=== PATIENT | female | born 1965 | race Caucasian/White ===

== ENCOUNTER → 2016-11-05 | Outpatient (CLI) | payer OTHER | END | disposition home or self-care (01) | LOC: C.LABMFLN 09:22 | PROVIDERS: ATTEND Family Medicine | DX: R10.9 Unspecified abdominal pain (principal) ==

== ENCOUNTER → 2017-04-27 | Outpatient (CLI) | payer OTHER | END | disposition home or self-care (01) | LOC: C.LABMFLN 16:25 | PROVIDERS: ATTEND Family Medicine | DX: J02.9 Acute pharyngitis, unspecified (principal) ==

== ENCOUNTER → 2017-05-25 | Outpatient (CLI) | payer OTHER ==
[2017-05-25 14:03] LABS: BASO % 0.2 %; BASO ABS # 0.01 K/uL (0-0.2); COMPLETE YES; EOS % 1.3 %; HEMATOCRIT 38.8 % (37-47); IG% 0.2 %; LYMPH % 27.2 %; LYMPH ABS # 1.41 K/uL (1.2-3.4); MEAN CELL VOLUME 95.6 fL (80-100); MEAN CORPUSCULAR HEMOGLOBIN 31.3 pg (25-34); MEAN CORPUSCULAR HGB CONC 32.7 g/dl (32-36); MONO % 8.5 %; NEUT % 62.6 %; PLATELET COUNT 158 K/uL (130-400); RED BLOOD COUNT 4.06 M/uL (4.2-5.4); WHITE BLOOD COUNT 5.19 K/uL (4.8-10.8)
[2017-05-25 14:22] LABS: ALT/SGPT 20 U/L (12-78); AST/SGOT 13 U/L (15-37); BLOOD UREA NITROGEN 19 mg/dl (7-18); BUN/CREATININE RATIO 26.5 (10-20); CALCIUM 8.9 mg/dl (8.5-10.1); CARBON DIOXIDE 29 mmol/L (21-32); CHLORIDE 106 mmol/L (98-107); CREATININE 0.72 mg/dl (0.60-1.20); GLUCOSE 80 mg/dl (70-99); SODIUM 140 mmol/L (136-145)
[2017-05-25 14:23] LABS: CHOLESTEROL/HDL RATIO 2.3; THYROID STIMULATING HORMONE 0.02 uIu/ml (0.300-4.500)
[2017-05-25 14:24] LABS: ALB/GLOB RATIO 1.1 (0.9-2); ALKALINE PHOSPHATASE 33 U/L (45-117)
== END | disposition home or self-care (01) ==
LOC: C.LABMFLN 11:55
PROVIDERS: ATTEND Internal Medicine Rheumatology
DX: Z51.81 Encounter for therapeutic drug level monitoring (principal); Z79.899 Other long term (current) drug therapy; E78.5 Hyperlipidemia, unspecified; E03.9 Hypothyroidism, unspecified

== ENCOUNTER → 2017-06-25 | Outpatient (CLI) | payer OTHER ==
[2017-06-25 18:11] LABS: THYROID STIMULATING HORMONE 0.048 uIu/ml (0.300-4.500)
== END | disposition home or self-care (01) ==
LOC: C.LABMFLN 12:46
PROVIDERS: ATTEND Family Medicine
DX: E03.9 Hypothyroidism, unspecified (principal)

== ENCOUNTER → 2018-05-24 | Outpatient (CLI) | payer BC ==
[2018-05-24 18:13] LABS: BASO % 0.1 %; BASO ABS # 0.01 K/uL (0-0.2); EOS % 0.5 %; EOS ABS # 0.04 K/uL (0-0.5); HEMATOCRIT 37.8 % (37-47); HEMOGLOBIN 12.8 g/dL (12.0-16.0); IG# 0.03 K/uL (0.00-0.02); LYMPH % 18.3 %; MEAN CELL VOLUME 95.2 fL (80-100); MEAN CORPUSCULAR HEMOGLOBIN 32.2 pg (25-34); MEAN CORPUSCULAR HGB CONC 33.9 g/dl (32-36); MEAN PLATELET VOLUME 9.3 fL (7.4-10.4); MONO % 6.5 %; MONO ABS # 0.53 K/uL (0.11-0.59); NEUT % 74.2 %; NEUT ABS # 6.09 K/uL (1.4-6.5); PLATELET COUNT 229 K/uL (130-400); RED CELL DISTRIBUTION WIDTH CV 12.5 % (11.5-14.5); RED CELL DISTRIBUTION WIDTH SD 42.8 fL (36.4-46.3)
[2018-05-24 18:59] LABS: ALBUMIN 3.5 gm/dl (3.4-5.0); ALKALINE PHOSPHATASE 40 U/L (45-117); ALT/SGPT 21 U/L (12-78); AST/SGOT 24 U/L (15-37); BLOOD UREA NITROGEN 19 mg/dl (7-18); CALCIUM 8.6 mg/dl (8.5-10.1); CARBON DIOXIDE 26 mmol/L (21-32); CHOLESTEROL 235 mg/dl (0-200); CREATININE 0.98 mg/dl (0.60-1.20); GLUCOSE 86 mg/dl (70-99); LDL CHOLESTEROL CALCULATED 127 mg/dl; POTASSIUM 3.6 mmol/L (3.5-5.1); SODIUM 135 mmol/L (136-145); TOTAL PROTEIN 7.1 gm/dl (6.4-8.2)
== END | disposition home or self-care (01) ==
LOC: C.LABMFLN 13:23
PROVIDERS: ATTEND Family Medicine
DX: M06.9 Rheumatoid arthritis, unspecified (principal); E78.5 Hyperlipidemia, unspecified; E03.9 Hypothyroidism, unspecified

== ENCOUNTER 2020-11-19 08:42 | Inpatient (IN) ==
--- NOTE | 2020-10-17 11:21 | PAT Medication Instructions ---
Medication Instructions Date of Service October 17, 2020 Home Medications ferrous gluconate 256 mg (28 mg iron) tablet 256 mg PO QAM calcium carbonate-vitamin D3 1 cap PO QAM cholecalciferol (vitamin D3) 1,000 units PO QAM estradiol 1 mg PO QAM flurbiprofen 100 mg PO BID levothyroxine 75 mcg PO QAM modafinil 100 mg PO DAILY PRN prednisone 2 mg PO QAM tofacitinib 11 mg PO QAM ASK your surgeon for instructions flurbiprofen 100 mg PO BID ASK your prescriber and surgeon tofacitinib 11 mg PO QAM DO NOT take the morning of surgery ferrous gluconate 256 mg (28 mg iron) tablet 256 mg PO QAM calcium carbonate-vitamin D3 1 cap PO QAM cholecalciferol (vitamin D3) 1,000 units PO QAM modafinil 100 mg PO DAILY PRN Take morning of surgery With a small sip of water, OTHERWISE NOTHING TO EAT OR DRINK AFTER MIDNIGHT: levothyroxine 75 mcg PO QAM prednisone 2 mg PO QAM estradiol 1 mg PO QAM (continue as normal unless told otherwise by surgeon) Other Notes If you have any questions please call us at [phone] or [phone] or [phone] or [phone]
--- NOTE | 2020-10-18 13:35 | Anesthesiology Consultation ---
Date of Service October 18, 2020 Assessment & Plan (1) Encounter for pre-operative examination: COVID Status: As of 10/18 assessment, patient denies travel to endemic area, known exposure/sick contacts, or symptoms of COVID19. Patient instructed that they and their household members must follow strict social distancing guidelines, wear a mask in public and avoid travel/events/gatherings for 14 days prior to surgery. Preoperative COVID19 testing to be completed prior to surgery per surgeon's arrangements (11/12). Patient made aware to self-isolate as much as possible between COVID testing and surgery. Chart Review Chart Review: Acceptable Risk for Surgery and Patient seen in Pre Admission Testing Teaching & Discussion Instructed NPO after midnight before surgery, except medications with 15 cc of water. Medication instructions provided according to the PAT guidelines. History Surgery Operation Date: 11/19/20 10:25 Proposed Procedures p L4-L5 Decompression Fusion Spinal Cord Monitoring - Jay Packer, Height/Weight Height: 5 ft 4 in Weight: 69 kg Allergies Allergy/AdvReac Type Severity Reaction Status Date / Time acetaminophen [From Tempra] Allergy Intermediate Gastrointestinal Verified 10/01/20 09:49 Upset codeine Allergy Intermediate Gastrointestinal Verified 10/01/20 09:49 Upset hydromorphone [From Dilaudid] Allergy Intermediate Gastrointestinal Verified 10/01/20 09:49 Upset Medications Home Medications Medication Instructions Recorded Confirmed Last Taken ferrous gluconate 256 mg (28 mg 256 mg PO QAM 11/10/19 10/01/20 Unknown iron) tablet calcium carbonate-vitamin D3 1 cap PO QAM 10/01/20 10/01/20 Unknown cholecalciferol (vitamin D3) 1,000 units PO QAM 10/01/20 10/01/20 Unknown estradiol 1 mg PO QAM 10/01/20 10/01/20 Unknown flurbiprofen 100 mg PO BID 10/01/20 10/01/20 Unknown levothyroxine 75 mcg PO QAM 10/01/20 10/01/20 Unknown modafinil 100 mg PO DAILY PRN 10/01/20 10/01/20 Unknown prednisone 2 mg PO QAM 10/01/20 10/01/20 Unknown tofacitinib 11 mg PO QAM 10/01/20 10/01/20 Unknown Past Medical History Medical History (Updated 01/07/21 @ 15:56 by Rafael Nunn) High risk medication use History of Graves' disease Hormone replacement therapy Hyperlipidemia Hypothyroidism s/p total thyroidectomy 1997 for graves dz Rheumatoid arthritis Follows with Rheum, on Xeljanz and daily prednisone Past Family History Family History Unknown Arthritis Mother Hypertension FH: deafness or hearing loss Father Gout Coronary heart disease Grandfather Coronary heart disease Grandmother Rheumatoid arthritis Son FHx: allergies Asthma Past Surgical History Surgical History H/O colonoscopy H/O laparoscopy H/O thyroidectomy History of bilateral salpingo-oophorectomy History of dilatation and curettage History of surgery on left wrist S/P carpal tunnel release bilat S/P hysterectomy S/P tonsillectomy [place] teeth extracted Past Anesthesia History No Hx of Anesthesia Complications and No Family Hx of Anesthesia Complications History of PONV No Hx of PONV and Hx of Motion Sickness (only with amusement park rides) Social History Smoking Status: Never smoker Do You Dip or Chew Tobacco: No Hx Alcohol Use: Yes Alcohol type: hard liquor alcohol intake frequency: holidays/special occasions only Hx Substance Use: No substance use type: does not use Review of Systems Pt denies any recent chest pain, shortness of breath, palpitations, cough, fever, URI, or uncontrolled acid reflux. Physical Exam Vital Signs BP: 128/82 P: 56bpm SPO2: 99% RA T: 98.1 F R: 16 ENMT Mouth: no chipped teeth and no loose teeth Thyromental Distance: > or= 3.5 Finger Breadths Mallampati Class: II Mouth / Teeth: 1. missing Neck normal visual inspection and + limited neck extension (pain with full extension) Respiratory normal respiratory effort, lungs clear to auscultation Cardiovascular Rate/Rhythm: regular rhythm and + bradycardic Heart Sounds: normal S1 and normal S2; no murmur Extremities: no pedal edema Testing Laboratory Results 10/18/20 13:43 10/18/20 13:43 PT 10.2 Seconds (9.0-12.0) 10/18/20 13:43 INR 1.0 (0.9-1.1) 10/18/20 13:43 APTT 27.3 Seconds (21.0-31.0) 10/18/20 13:43 Urine Color Yellow 10/18/20 13:43 Urine Appearance Clear (Clear) 10/18/20 13:43 Urine pH 7.0 (4.5-7.5) 10/18/20 13:43 Ur Specific [place] 1.020 (1.000-1.030) 10/18/20 13:43 Urine Protein Negative (Negative) 10/18/20 13:43 Urine Glucose (UA) Negative (Negative) 10/18/20 13:43 Urine Ketones Negative (Negative) 10/18/20 13:43 Urine Nitrite Negative (Negative) 10/18/20 13:43 Ur Leukocyte Esterase Negative (Negative) 10/18/20 13:43 Urine WBC (Auto) 1-5 /hpf (0-5) 10/18/20 13:43 Urine RBC (Auto) 5-10 /hpf (0-4) H 10/18/20 13:43 U Hyaline Cast (Auto) 1-5 /lpf (0-5) 10/18/20 13:43 U Epithel Cells (Auto) 10-20 /lpf (0-5) H 10/18/20 13:43 Urine Bacteria (Auto) 3+ (Negative) H 10/18/20 13:43 Blood Type A Negative 10/18/20 13:43 Antibody Screen NEGATIVE 10/18/20 13:43 *surgeon's office flagged re: + UA Electrocardiogram Date: 06/06/20 Findings: + SB @ (54bpm) and + no change from (2010) Chest X-Ray Date: 10/18/20 Findings: + NAD
--- NOTE | 2020-10-18 14:22 | XRay Report ---
XR chest Pre-admission PA/Lat CLINICAL HISTORY: Preoperative evaluation. COMPARISON STUDY: No previous studies for comparison. FINDINGS: Lung volumes are normal. Lungs are clear. There is no pneumothorax or pleural effusion. Car diac size is normal. Mediastinal contours are normal. There is no evidence for pulmonary edema. IMPRESSION: No acute cardiopulmonary findings. ACT 112: Negative or not required by law. Electronically signed by: Ric Sood M.D. 10/18/2020 2:20 PM
[2020-10-18 14:24] LABS: Appearance Urine Clear (Clear); Bacteria Urine Automated 3+ (Negative); Bilirubin Urine Negative (Negative); Blood Urine 1+ (Negative); Color Urine Yellow; Glucose Urine UA Negative (Negative); Ketones Urine Negative (Negative); Leukocyte Esterase Urine Negative (Negative); Nitrite Urine Negative (Negative); Protein Urine Negative (Negative); Urobilinogen Urine Negative (Negative)
[2020-10-18 14:28] LABS: Calcium 9.8 mg/dl (8.5-10.1); Creatinine Clr Calc Pharmacy 69.7 ml/min; Est GFR (African American) 86.9; Potassium 3.8 mmol/L (3.5-5.1)
[2020-10-18 14:35] LABS: Basophils # (auto) 0.01 K/uL (0-0.2); Basophils % (auto) 0.2 %; Eosinophils # (auto) 0.03 K/uL (0-0.5); Eosinophils % (auto) 0.5 %; Hematocrit (blood only) 37.3 % (37-47); Hemoglobin 12.7 g/dL (12.0-16.0); Lymphocytes # (auto) 1.12 K/uL (1.2-3.4); Lymphocytes % (auto) 18.3 %; Mean Corpuscular Hemoglobin 32.6 pg (25-34); Mean Corpuscular Volume 95.6 fL (80-100); Mean Platelet Volume 9.9 fL (7.4-10.4); Monocytes # (auto) 0.38 K/uL (0.11-0.59); Monocytes % (auto) 6.2 %; Neutrophils # (auto) 4.57 K/uL (1.4-6.5); Neutrophils % (auto) 74.8 %; Platelet Count 186 K/uL (130-400); RDW Coefficient of Variation 12.9 % (11.5-14.5); RDW Standard Deviation 44.8 fL (36.4-46.3); White Blood Count 6.11 K/uL (4.8-10.8)
[2020-10-18 14:37] LABS: Partial Thromboplastin Time 27.3 Seconds (21.0-31.0); Prothrombin Time 10.2 Seconds (9.0-12.0)
[~2020-11-19 08:42] MED LIST: ACETAMINOPHEN 500 MG TAB PO SCH; CeleBREX 200 MG CAP PO SCH; GABAPENTIN 600 MG DOSE PO SCH; LR 15ML/HR IV SCH; MIDAZOLAM HCL 1 MG/ML 2ML VIAL ONE; ceFAZolin 1000MG 1,000 MG/7.5 ML SYR IV SCH; fentaNYL citrate 100 MCG/2 ML VIAL ONE
--- NOTE | 2020-11-19 09:29 | History & Physical Bridge Note ---
Date of Service November 19, 2020 History & Physical Bridge Note I have examined the patient, reviewed the History & Physical and in the interval since the performance of the History & Physical I have noted the following changes of clinical significance: no changes noted
--- NOTE | 2020-11-19 09:30 | History & Physical Report ---
Date of Service November 19, 2020 Assessment & Plan (1) Neurogenic claudication due to lumbar spinal stenosis: Admission and Anticipated Discharge Date Admission Date: L4-L5 decompression fusion History of Present Illness Chief Complaint: Back and leg pain Primary Care Provider: Alethea Burciaga MD This is a 55-year-old female who presents with chronic persistent back and leg symptoms after failing course of nonoperative care she is here for surgical invention. Allergies Allergy/AdvReac Type Severity Reaction Status Date / Time acetaminophen [From Tempra] Allergy Intermediate Gastrointestinal Verified 11/19/20 09:21 Upset codeine Allergy Intermediate Gastrointestinal Verified 11/19/20 09:21 Upset hydromorphone [From Dilaudid] Allergy Intermediate Gastrointestinal Verified 11/19/20 09:21 Upset Home Medications Medication Instructions Recorded Confirmed Type calcium carbonate-vitamin D3 1 cap PO QAM 10/01/20 11/19/20 History cholecalciferol (vitamin D3) 1,000 units PO QAM 10/01/20 11/19/20 History flurbiprofen 100 mg PO BID 10/01/20 11/19/20 History modafinil 100 mg PO DAILY PRN 10/01/20 11/19/20 History tofacitinib [Xeljanz XR] 11 mg PO QAM 10/01/20 11/19/20 History ferrous gluconate 256 mg (28 mg 256 mg PO .COMPLEX 10/25/20 11/19/20 History iron) tablet prednisone 1 mg tablet 1 mg PO QAM tab 10/25/20 11/19/20 History estradiol 1 mg tablet 1 mg PO QAM #90 tab 11/02/20 11/19/20 Rx levothyroxine 75 mcg tablet 75 mcg PO QAM #90 tab 11/02/20 11/19/20 Rx Past Med/Surg History Medical History High risk medication use History of Graves' disease Hormone replacement therapy Hyperlipidemia Hypothyroidism Rheumatoid arthritis Surgical History H/O colonoscopy H/O laparoscopy H/O thyroidectomy History of bilateral salpingo-oophorectomy History of dilatation and curettage History of surgery on left wrist S/P carpal tunnel release S/P hysterectomy S/P tonsillectomy [place] teeth extracted Family History Unknown Arthritis Mother Hypertension FH: deafness or hearing loss Father Gout Coronary heart disease Grandfather Coronary heart disease Grandmother Rheumatoid arthritis Son FHx: allergies Asthma Social History Smoking Status: Former smoker Second Hand Exposure: No; Do You Dip or Chew Tobacco: No; Tobacco Cessation Education Requested by Patient: No Hx Alcohol Use: Yes Alcohol type: hard liquor Hx Substance Use: No Preferred Language: Yemeni Communication Ability: Effective 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
[2020-11-19] MEDS ORDERED: ONDANSETRON INJ 2 MG/ML 2 ML VIAL IV PRN ×2 (09:45→13:29)
[2020-11-19] MEDS ORDERED: PROMETHAZINE HCL 12.5 MG in SODIUM CHLORIDE 0.9% 50 ML IV PRN ×2 (09:45→13:29)
[2020-11-19] MEDS ORDERED: MoRPHine SULFATE 10 MG/ML CARP/VIAL IV PRN (09:45)
[2020-11-19] MEDS ORDERED: ATROPINE SULFATE 0.1 MG/ML 10ML SYR IV PRN (09:45)
[2020-11-19] MEDS ORDERED: BUPIVACAINE/EPINEPHRINE 0.5% MPF 1:200,000 30 ML VIAL ONE (09:51)
[2020-11-19] MEDS ORDERED: BACITRACIN INJ 50,000 UNIT VIAL ONE (09:51)
[2020-11-19] MEDS ORDERED: DEXAMETHASONE SOD INJ 4 MG/ML VIAL ONE (10:36)
[2020-11-19] MEDS ORDERED: PHENYLEPHRINE 100MCG/ML 5ML SYR ONE (10:36)
[2020-11-19] MEDS ORDERED: ROCURONIUM BROMIDE 10 MG/ML 5 ML VIAL IV ONE (10:36)
[2020-11-19] MEDS ORDERED: GLYCOPYRROLATE 0.2 MG/ML VIAL ONE (10:36)
[2020-11-19] MEDS ORDERED: PROPOFOL IV EMULSION 10 MG/ML 20 ML VIAL IV ONE (10:36)
[2020-11-19] MEDS ORDERED: LIDOCAINE HCL 2% 2 ML VIAL/AMP(20MG/ML) INFIL ONE (10:36)
[2020-11-19] MEDS ORDERED: NEOSTIGMINE METHYLSULFATE 1 MG/ML 10ML VIAL ONE (10:36)
[2020-11-19] MEDS ORDERED: LARYING-O-JET KIT (LTA) ONE (10:36)
[2020-11-19] MEDS ORDERED: ePHEDrine sulfate 50 MG/ML SYR ONE (10:36)
[2020-11-19] MEDS ORDERED: ONDANSETRON INJ 2 MG/ML 2 ML VIAL ONE ×2 (10:36→13:52)
[2020-11-19] MEDS ORDERED: FLOSEAL HEMOSTATIC MATRIX 10ML TOP ONE (11:22)
--- NOTE | 2020-11-19 11:29 | Operative Report ---
Post Operative Report Pre & Post Diagnosis Operation Date: 11/19/20 09:55 Pre-Op Diagnosis: Spinal Stenosis, Lumbar Region Post-Op Diagnosis: Spinal Stenosis, Lumbar Region I identified the patient and participated in the time-out.: Yes Procedure Operation Date: 11/19/20 09:55 Actual Procedures #1 lumbar decompression bilateral medial facetectomies and foraminotomies L3-4 and L4-5. #2 posterior spinal fusion L4-5 per #3 placed posterior instrumentation L4-5 per #4 interbody fusion L4-5. #5 placement peek cage 11 x 22 mm at L4-5 per #6 placement locally harvested morselized autograft in the posterior gutters. #7 placement infuse collagen sponge, master graft in the posterior lateral gutters and osteopenic body space Surgeon Jay Packer DO Table Assembler Karen Kunh Estimated Blood Loss 25 Findings Consistent with Post-Op Diagnosis Specimens None Indications This is a 55-year-old female who presents with chronic persistent back and leg pain after failing course of nonoperative care she is here for surgical invention. Description of Procedure Patient met with identified informed consent obtained. Patient was then taken to the operative suite underwent a patient placed in a prone position Matthew table total spine frame. All bony prominences well-padded eyes inspected to ensure no external pressure placed upon the. This point the lumbar spine is prepped and draped in a sterile fashion. Sharp dissection with the assistance of Bovie cautery was performed down to and exposing the lamina and transverse processes of L4 and L5 bilaterally. From caudal cephalad fashion complete laminectomy of L4 partial laminectomy L3 was performed including bilateral medial facetectomies and foraminotomies addressing all neural compression. I did note facet cyst at L4-5 and left significant adhesions to the traversing nerve root. After decompression pedicle screws were placed in L4 and L5 bilaterally with assistance of fluoroscopy the purposes richard placed. By way of a transforaminal portion left complete discectomy was performed endplates curetted to subcortical bleeding bone and an 11 x 22 mm peek cage filled osteobone graft tapped in position. Rods were then locked in final position bilaterally. The transverse processes of L4 and L5 burred to subcortical bleeding bone. Infuse collagen sponge master graft local autograft was placed in posterior gutters. 15 round KAREN drain inserted. The incision was then closed with 1 Vicryl to fascia 2-0 Vicryl subcutaneously and 4 Monocryl for final skin closure. Steri- Strip sterile dressings placed. Patient will continue to PACU stable condition. Please note spinal cord monitoring visualized at the procedure no changes noted. Lastly Karen Kuhn was present for the entire surgery involved the patient positioning complex portions of the surgery and final skin closure. I attest to the content of the Intraoperative Record and any orders documented therein. Any exceptions are noted below.
--- NOTE | 2020-11-19 12:32 | Fluoroscopy Report ---
INTRAOPERATIVE RADIOGRAPHS CLINICAL HISTORY: L4-L5 spinal fusion. Fluoroscopy time: 16 seconds. FINDINGS: 2 spot fluoroscopic views of the lumbar spine are presented. There has been discectomy at L 4-L5 with laminectomy and posterior fusion at this level. Interpedicular screws are in place. The ort hopedic hardware appears intact. Minimal anterolisthesis is seen at L4-L5. IMPRESSION: Intraoperative images from L4-L5 spinal fusion as above. Electronically signed by: Almas Moreland M.D. 11/19/2020 12:30 PM
[2020-11-19] MEDS ORDERED: HYDROmorphone INJ 1 MG/ML SYRINGE IV PRN (13:29)
[2020-11-19] MEDS ORDERED: METOCLOPRAMIDE HCL INJ 5 MG/ML 2 ML VIAL IV PRN (13:29)
[2020-11-19] MEDS ORDERED: LORazepam 0.5 MG TAB PO PRN (13:29)
[2020-11-19] MEDS ORDERED: hydrOXYzine HCl 25 MG TAB PO PRN (13:29)
[2020-11-19] MEDS ORDERED: oxyCODONE HCL IR 5 MG TAB (IMMEDIATE RELEASE) PO PRN (13:29)
[2020-11-19] MEDS ORDERED: modafiniL 100 MG TAB PO PRN (13:29)
[2020-11-19] MEDS ORDERED: LORazepam 0.5 MG/1 ML VIAL IV PRN (13:29)
[2020-11-19] MEDS ORDERED: MAGNESIUM HYDROXIDE SUSP 30 ML UDC PO PRN (13:29)
[2020-11-19] MEDS ORDERED: SOD PHOSPHATE/SOD BIPHOSPHATE ENEMA 132 ML BTL PR PRN (13:29)
[2020-11-19] MEDS ORDERED: DO NOT ADMINISTER PNEUMOCOCCAL VACCINE PRN (13:29)
[2020-11-19] MEDS ORDERED: HYDROmorphone INJ 0.5 MG/0.5 ML SYR IV PRN (13:29)
[2020-11-19] MEDS ORDERED: NALOXONE HCL 0.4 MG/1 ML VIAL/CARP IV PRN (13:29)
[2020-11-19] MEDS ORDERED: FAMOTIDINE 20 MG TAB PO PRN (13:29)
[2020-11-19] MEDS ORDERED: diphenhydrAMINE Capsule 25 MG CAP PO PRN (13:29)
[2020-11-19] MEDS ORDERED: ALUMINUM/MAGNESIUM SUSP 30 ML UDC PO PRN (13:29)
[2020-11-19] MEDS ORDERED: ACETAMINOPHEN 1,000 MG/100 ML VIAL IV PRN (13:29)
[2020-11-19] MEDS ORDERED: ONDANSETRON 4 MG OD TAB PO PRN (13:29)
[2020-11-19] MEDS ORDERED: DO NOT ADMINISTER FLU VACCINE PRN (13:29)
[2020-11-19] MEDS: KETOROLAC TROMETHAMINE 15 MG/ML VIAL IV SCH ×2 (14:42→18:24)
[2020-11-19] MEDS: LACTATED RINGER'S 1,000 ML IV SCH (14:42)
--- NOTE | 2020-11-19 14:44 | Anesthesiology Progress Note ---
Date of Service November 19, 2020 Anesthesia Post Procedure Vital Signs Vital Signs: Temp Pulse Pulse Resp BP BP Pulse Ox 11/19/20 14:18 36.6 C 59 L 17 129/79 97 11/19/20 13:15 36.5 C 57 L 16 117/72 100 11/19/20 12:50 60 18 125/75 99 11/19/20 12:40 36.5 C 60 14 134/65 99 11/19/20 12:30 69 16 120/69 99 11/19/20 12:20 63 21 132/71 99 11/19/20 12:10 63 16 133/71 99 11/19/20 12:00 64 15 116/61 100 11/19/20 11:50 66 18 131/72 100 11/19/20 11:40 36.2 C L 74 12 116/59 L 100 11/19/20 09:30 36.9 C 54 L 16 142/82 H 98 Pain Intensity Lower Back: Pain Intensity: 3 Transfer of Care Handoff Completed per policy Notes Mental Status: alert / awake / arousable Patient Amnestic to Procedure: Yes Nausea / Vomiting: adequately controlled Pain: adequately controlled Airway Patency, RR, SpO2: stable & adequate BP & HR: stable & adequate Hydration State: stable & adequate Anesthetic Complications: no major complications apparent
[2020-11-19] MEDS: ceFAZolin 2000MG 2,000 MG/15 ML SYR IV SCH (18:24)
[2020-11-19] MEDS: DOCUSATE SODIUM/SENNA 50/8.6MG TAB PO SCH (20:14)
[2020-11-20] MEDS: LACTATED RINGER'S 1,000 ML IV SCH (00:58)
[2020-11-20] MEDS: KETOROLAC TROMETHAMINE 15 MG/ML VIAL IV SCH ×2 (01:16→05:40)
[2020-11-20] MEDS: ceFAZolin 2000MG 2,000 MG/15 ML SYR IV SCH (01:26)
[2020-11-20] MEDS: LEVOTHYROXINE SODIUM 75 MCG TABLET PO SCH (05:40)
[2020-11-20 06:12] LABS: Eosinophils # (auto) 0.02 K/uL (0-0.5); Eosinophils % (auto) 0.2 %; Hematocrit (blood only) 30.9 % (37-47); Hemoglobin 10.8 g/dL (12.0-16.0); Immature Granulocytes # (auto) 0.02 K/uL (0.00-0.02); Immature Granulocytes % (auto) 0.2 %; Lymphocytes % (auto) 8.1 %; Mean Corpuscular Hemoglobin 32.8 pg (25-34); Mean Corpuscular Volume 93.9 fL (80-100); Mean Platelet Volume 9.8 fL (7.4-10.4); Monocytes # (auto) 0.82 K/uL (0.11-0.59); Monocytes % (auto) 9.5 %; Neutrophils # (auto) 7.06 K/uL (1.4-6.5); Platelet Count 147 K/uL (130-400); RDW Coefficient of Variation 12.3 % (11.5-14.5); RDW Standard Deviation 42.3 fL (36.4-46.3); Red Blood Count 3.29 M/uL (4.2-5.4); White Blood Count 8.62 K/uL (4.8-10.8)
[2020-11-20 06:45] LABS: BUN Creatinine Ratio 14.2 (10-20); Calcium 8.8 mg/dl (8.5-10.1); Creatinine Clr Calc Pharmacy 75.8 ml/min; Est GFR (Non-African American) 83.7; Potassium 3.8 mmol/L (3.5-5.1)
[2020-11-20] MEDS: estradioL 1 MG TAB PO SCH (08:03)
[2020-11-20] MEDS: CHOLECALCIFEROL 1,000 UNITS 25 MCG TAB PO SCH (08:03)
[2020-11-20] MEDS: predniSONE 1 MG TAB PO SCH (08:03)
[2020-11-20] MEDS: CALCIUM 600MG + VIT D 400 IU TAB PO SCH (08:03)
[2020-11-20] MEDS: POLYETHYLENE (MIRALAX) 17 GM PACK PO SCH ×3 (08:04→23:22)
[2020-11-20] MEDS ORDERED: FERROUS GLUCONATE 324 MG TAB PO SCH (09:00)
[2020-11-20] MEDS: ACETAMINOPHEN 500 MG TAB PO PRN ×2 (15:07→23:30)
--- NOTE | 2020-11-20 16:25 | Orthopedic Progress Note ---
Date of Service November 20, 2020 Assessment & Plan (1) Neurogenic claudication due to lumbar spinal stenosis: Admission and Anticipated Discharge Date Admission Date: November 19, 2020 At this time continue physical therapy monitor her KAREN output anticipate discha tanmay home in the next few days. Subjective Back pain controlled leg symptoms markedly improved. Physical Exam Physical Exam: On exam she is sitting up on the side of the bed. Is good strength testing. Appears comfortable. Results & Data ([facility]) Vital Signs (Past 12 Hours) Vital Signs Temp Pulse Resp BP Pulse Ox 11/20/20 14:55 36.8 C 67 17 113/70 97 11/20/20 11:49 36.9 C 58 L 17 112/75 99 11/20/20 07:24 36.7 C 61 17 99/63 L 99
[2020-11-20] MEDS: DOCUSATE SODIUM/SENNA 50/8.6MG TAB PO SCH (20:20)
[2020-11-21] MEDS: traMADol HCL 50 MG TABLET PO PRN ×2 (01:21→03:16)
[2020-11-21] MEDS: POLYETHYLENE (MIRALAX) 17 GM PACK PO SCH ×2 (05:47→13:01)
[2020-11-21] MEDS: LEVOTHYROXINE SODIUM 75 MCG TABLET PO SCH (05:47)
[2020-11-21] MEDS: ACETAMINOPHEN 500 MG TAB PO PRN (07:49)
[2020-11-21] MEDS: predniSONE 1 MG TAB PO SCH (07:51)
[2020-11-21] MEDS: CALCIUM 600MG + VIT D 400 IU TAB PO SCH (07:51)
[2020-11-21] MEDS: estradioL 1 MG TAB PO SCH (07:52)
[2020-11-21] MEDS: CHOLECALCIFEROL 1,000 UNITS 25 MCG TAB PO SCH (07:52)
[2020-11-21] MEDS ORDERED: DEXAMETHASONE SOD PHOSPHATE 8 MG in SYRINGE 0 ML IV SCH (09:00)
--- NOTE | 2020-11-21 10:42 | Discharge Summary ---
Date of Service November 21, 2020 Admission HPI Per Admitting Provider This is a 55-year-old female who presents with chronic persistent back and leg symptoms after failing course of nonoperative care she is here for surgical invention. Principal Diagnosis Lumbar spinal stenosis with neurogenic claudication Discharge Data Allergies Allergy/AdvReac Type Severity Reaction Status Date / Time acetaminophen [From Tempra] AdvReac Intermediate Gastrointestinal Verified 11/19/20 13:12 Upset celecoxib [From Celebrex] AdvReac Intermediate itching Verified 11/19/20 09:51 codeine AdvReac Intermediate Gastrointestinal Verified 11/19/20 13:12 Upset hydromorphone [From Dilaudid] AdvReac Intermediate Gastrointestinal Verified 11/19/20 13:12 Upset Consultations 11/19/20 13:29 Consult Case Management - Discharge Planning Routine Procedures Performed Operation Date: 11/19/20 09:55 Actual Procedures p L4-L5 Decompression Fusion, Spinal Cord Monitoring, Application of Bone Mo rphogenetic Protein and Allograft - Jay Packer DO Ordered Studies 11/19/20 09:55 FL fluoroscopy <1hr Routine FL lumbar spine 2-3V Routine Hospital Course (1) Neurogenic claudication due to lumbar spinal stenosis: Patient with lumbar decompression fusion tolerated well second orthopedic for postoperative. Postop day 1 she was up ambulating post the postop day #2. KAREN drain decreasing appropriate. Pain well controlled. Subsequently discharged home. Discharge orders instructions from the chart for further review. Total Time Total Time Spent Total Time Spent (In Minutes): 20 minutes Discharge Plan Discharge Items Patient Disposition: Home - Self-Care Reason For Visit: Spinal Stenosis, Lumbar Region Discharge Diagnosis: Lumbar spinal stenosis Activity: As commented below Non-emergency contact: Primary Care Provider Call non-emergency contact if: you have any medication questions Follow-up/Referrals: Alethea Burciaga MD [Primary Care Provider] - Diet: Regular Addtl Attending Provider Instructions: ACTIVITY RECOMMENDATIONS: SELF CARE INSTRUCTIONS AFTER THORACIC/LUMBAR FUSIONS 1. You may walk to your tolerance. It is good exercise for your legs and back. Expect some back and intermittent leg aches and pains. 2. You may perform "counter-top" level activities (make a sandwich, keri with a project, etc.). 3. No bending or lifting of more than 10 pounds or back twisting of any nature (roll like a log when turning in bed). 4. You may ride in a car for 20-30 minutes at a time. No driving until after your first visit with your doctor. 5. Frequent changes of position and restricting sitting to 30 minutes at a time will help limit the amount of back spasms and stiffness you may experience. 6. You may discontinue the use of ambulatory aids (cane, crutches, etc.) once your strength and confidence allow. 7. You may linux admin engineer the shower and let water strike your incision when you arrive home at least once daily. Do not take a tub bath, sit in a hot tub or go into a swimming pool until after your first recheck in the office. SPECIAL CARE INSTRUCTIONS: VERY IMPORTANT TO READ AND REVIEW A. Your surgical incision has been closed with a cosmetic suture under the skin that will dissolve in about 6 weeks. In 14 days, you can use a pair of clean scissors and cut the suture that is left outside of the skin at the ends of your incision. 1. The small skin tapes can be removed 7 days after surgery if they have not fallen off by that point. 2. You may keep the wound open to air as much as possible to promote healing after post-op day number 5 unless told otherwise by your doctor. 3. If you think the wound looks like it is becoming infected (redness or worsening drainage) and/or you are experiencing fever, chill or worsening back pain and muscle spasms, contact the office so that we may evaluate you as soon as possible. B. Complications are uncommon, but please contact us if you have any signs or symptoms of: 1. wound infection (fever higher than 102.5 degrees F, redness, separation of wound, drainage, or increasing pain from the incision) 2. blood clots in legs (pain, swelling, redness and warmth in legs) 3. urinary tract infection (fever higher than 102.5 degrees F, burning upon urination or increased frequency of urination) 4. nerve problems (inability to walk on your toes or heels, numbness, loss of bowel or bladder control) 5. any other symptoms that concern you C. Please call the office at if you have any concerns or questions about your operation or recovery. D. No smoking! Smoking drastically decreases the chance of a solid fusion. E. Do not take any anti-inflammatory medications (Indocin, Advil, Motrin, Aspirin, Naprosyn, etc.) as these may inhibit the chance of a solid fusion. Tylenol is okay to take for pain. MANAGING PAIN AFTER SPINAL SURGERY 1. Narcotic medication is intended for short-term use and will be provided for surgical pain. Surgical pain usually lasts for a period of 4-6 weeks. Narcotic medication includes Percocet, Vicodin, Darvocet, Tylenol #3 or Lortab. 2. Longer-term pain is more appropriately treated with non-narcotic medication such as Tylenol ES. 3. Muscle spasm is not appropriately treated with narcotics. Muscle relaxers such as Soma, Flexeril or Skelaxin can be used along with Tylenol ES. 4. Remember that we all live with some "aches and pains". This is not unusual or uncommon after an injury or as we get older. a. Back pain is expected and may include muscle spasms for 4 to 6 weeks after surgery. The pain should gradually improve. If the pain worsens for no apparent reason, please contact the office. b. Intermittent leg pain may also be experienced and should not be concerned about unless it worsens for no apparent reason. If so, please contact the office. 5. We will provide appropriate medication within the normal guidelines of their prescribed use. We will also be very cautious and aware of potential abuse and extended duration of patients' medication needs. a. Pain medications are for your comfort and to assist with sleep and rest so that the tissue can heal. They are not provided in order to return to normal activity and should not be used through the day. To do so or worsening pain at night can result from ongoing tissue damage and development of tolerance to the prescribed medicine. 6. Please allow 2-3 days to process refills. Prescriptions will not be mailed but must be picked up at the office. FOLLOW UP VISIT: Keep your scheduled follow-up appointment. Any questions, please call the office at . Pending Studies at Discharge: No Stand-Alone Forms: My [employer], Smoking Cessation Medications and DC Order Prescriptions: New tramadol 50 mg tablet 50 mg PO Q6H PRN (Reason: pain, moderate) Qty: 30 RF: 0 oxycodone 5 mg tablet 5 mg PO Q6H PRN (Reason: pain, severe) Qty: 30 RF: 0 Continued levothyroxine 75 mcg tablet 75 mcg PO QAM Qty: 90 RF: 1 estradiol 1 mg tablet 1 mg PO QAM Qty: 90 RF: 1 ferrous gluconate 256 mg (28 mg iron) tablet 256 mg PO .COMPLEX RF: 0 flurbiprofen 100 mg Tablet 100 mg PO BID RF: 0 modafinil 100 mg tablet 100 mg PO DAILY PRN (Reason: Other) RF: 0 cholecalciferol (vitamin D3) 1,000 unit capsule 1,000 units PO QAM RF: 0 calcium carbonate-vitamin D3 600 mg calcium- 200 unit capsule 1 cap PO QAM RF: 0 prednisone 1 mg tablet 1 mg PO QAM RF: 0 Discontinued Xeljanz XR 11 mg tablet extended release 24 hr 11 mg PO QAM RF: 0 Discharge Orders: Discharge Order (Routine); Ordered 11/21/20 Ordered By: Jay Packer Admission Data Admit Date/Time: 11/19/20 12:15 Attending Provider: Jay Packer Admit Provider: Jay Packer Primary Care Provider: Alethea Burciaga
[2020-11-21] MEDS ORDERED: bisacodyL 10 MG SUPP PR PRN (11:33)
== END 2020-11-21 14:30 | disposition home or self-care (01) | DRG 455 ==
LOC: ASU 08:42 → 3E 12:15

== ENCOUNTER 2023-06-16 06:11 | Inpatient (IN) ==
--- NOTE | 2023-05-26 16:18 | PAT Medication Instructions ---
Medication Instructions Date of Service May 26, 2023 Home Medications Medication Instructions Recorded levothyroxine 75 mcg tablet 75 mcg PO QAM #90 tabs 04/20/23 calcium carbonate 600 mg-vitamin D3 5 mcg (200 unit) capsule 1 cap PO QAM modafinil 100 mg tablet 100 mg PO DAILY PRN prednisone 1 mg tablet 1 mg PO QAM acetaminophen 325 mg tablet (Tylenol) 325 mg PO QID PRN Pain cholecalciferol (vitamin D3) 25 mcg (1,000 unit) capsule 4,000 unit PO QAM flurbiprofen 100 mg tablet 100 mg PO QAM levothyroxine 75 mcg tablet 75 mcg PO QAM diphenhydramine 25 mg-acetaminophen 500 mg tablet (Tylenol PM Extra Strength) 1 tab PO HS PRN Sleep tofacitinib 11 mg tablet,extended release 24 hr (Xeljanz XR) 11 mg PO QAM ASK your surgeon for instructions flurbiprofen 100 mg tablet 100 mg PO QAM ASK your prescriber and surgeon tofacitinib 11 mg tablet,extended release 24 hr (Xeljanz XR) 11 mg PO QAM DO NOT take the morning of surgery calcium carbonate 600 mg-vitamin D3 5 mcg (200 unit) capsule 1 cap PO QAM modafinil 100 mg tablet 100 mg PO DAILY PRN cholecalciferol (vitamin D3) 25 mcg (1,000 unit) capsule 4,000 unit PO QAM Take morning of surgery With a small sip of water, OTHERWISE NOTHING TO EAT OR DRINK AFTER MIDNIGHT: prednisone 1 mg tablet 1 mg PO QAM acetaminophen 325 mg tablet (Tylenol) 325 mg PO QID PRN Pain (if needed) levothyroxine 75 mcg tablet 75 mcg PO QAM Take evening before surgery modafinil 100 mg tablet 100 mg PO DAILY PRN (if needed) acetaminophen 325 mg tablet (Tylenol) 325 mg PO QID PRN Pain (if needed) diphenhydramine 25 mg-acetaminophen 500 mg tablet (Tylenol PM Extra Strength) 1 tab PO HS PRN Sleep (if needed) Other Notes If you have any questions please call us at [phone] or [phone] or [phone] or [phone]
--- NOTE | 2023-05-29 09:31 | Anesthesiology Consultation ---
Date of Service May 29, 2023 Assessment & Plan (1) Encounter for pre-operative examination: - COVID screening: Per assessment on 05/29: No known COVID-19 positive contacts or current COVID-19 related symptoms. No recent Covid positive test result. - S/P L4-5 decompression/fusion (11/19/20): Grade view 2, MAC 3.0, ETT 7.0, atraumatic at [facility] - Patient acceptable risk for surgery pending surgeon-ordered PCP preop evaluation (PAO, appt 06/04). Chart Review Chart Review: Patient seen in Pre Admission Testing Teaching & Discussion Pre-Anesthesia Teaching/Discussion Notes: Instructed NPO after midnight before surgery,except medications with 15 cc of water. Medication instructions provided according to the PAT guidelines. History Surgery Operation Date: 06/16/23 10:05 Proposed Procedures p L3-L4 Decompression and Fusion, L4-L5 Hardware Removal, Spinal Cord Monitoring - Jay Packer, Height/Weight Height: 5 ft 4 in Weight: 70 kg Allergies Allergy/AdvReac Type Severity Reaction Status Date / Time acetaminophen [From Tempra] AdvReac Intermediate Gastrointestinal Verified 05/25/23 13:49 Upset celecoxib [From Celebrex] AdvReac Intermediate itching Verified 05/25/23 13:49 codeine AdvReac Intermediate Gastrointestinal Verified 05/25/23 13:49 Upset hydromorphone [From Dilaudid] AdvReac Intermediate Gastrointestinal Verified 05/25/23 13:49 Upset oxycodone [From Percocet] AdvReac Intermediate Vomiting Verified 05/25/23 13:49 Medications Home Medications Medication Instructions Recorded Confirmed Last Taken calcium carbonate 600 mg-vitamin 1 cap PO QAM 10/01/20 05/25/23 11/18/20 07:00 D3 5 mcg (200 unit) capsule modafinil 100 mg tablet 100 mg PO DAILY PRN Other 10/01/20 05/25/23 1 Week Ago ~11/12/20 prednisone 1 mg tablet 1 mg PO QAM 10/25/20 05/25/23 11/19/20 07:00 acetaminophen 325 mg tablet 325 mg PO QID PRN Pain 01/29/21 05/25/23 Unknown (Tylenol) cholecalciferol (vitamin D3) 25 4,000 unit PO QAM 01/30/22 05/25/23 Unknown mcg (1,000 unit) capsule flurbiprofen 100 mg tablet 100 mg PO QAM 01/30/22 05/25/23 Unknown levothyroxine 75 mcg tablet 75 mcg PO QAM #90 tabs 04/20/23 05/25/23 Unknown diphenhydramine 25 1 tab PO HS PRN Sleep 05/25/23 05/25/23 Unknown mg-acetaminophen 500 mg tablet (Tylenol PM Extra Strength) tofacitinib 11 mg tablet,extended 11 mg PO QAM 05/25/23 05/25/23 Unknown release 24 hr (Xeljanz XR) Past Medical History Medical History History of Graves' disease Hyperlipidemia Per records, patient denies Hypothyroidism s/p total thyroidectomy 1997 for graves dz Rheumatoid arthritis Follows with Rheum Taking Xeljanz and daily prednisone 1 mg daily Exercise / Class Metabolic Activity II 4-5 Yardwork/Stairs/Walk up hill (one FS (no CP, no SOB)) Past Family History Family History Unknown Arthritis Mother Hypertension FH: deafness or hearing loss Father Gout Coronary heart disease Grandfather Coronary heart disease Grandmother Rheumatoid arthritis Son FHx: allergies Asthma Past Surgical History Surgical History H/O colonoscopy H/O laparoscopy H/O thyroidectomy due to Graves disease History of arthroscopy right knee History of bilateral salpingo-oophorectomy History of dilatation and curettage History of surgery on left wrist + hardware S/P carpal tunnel release R/L S/P hysterectomy S/P lumbar fusion L4-5 decompression/fusion (11/19/20): Grade view 2, MAC 3.0, ETT 7.0, atraumatic at [facility] S/P tonsillectomy [place] teeth extracted Past Anesthesia History No Hx of Anesthesia Complications and No Family Hx of Anesthesia Complications History of PONV No Hx of PONV and Hx of Motion Sickness Social History Smoking Status: Never smoker Do You Dip or Chew Tobacco: No Hx Alcohol Use: Yes Alcohol type: hard liquor alcohol intake frequency: a few times a week Hx Substance Use: No substance use type: does not use Review of Systems Patient denies chest pain, shortness of breath, dyspnea on exertion, fever, chills, cough, wheezing, palpitations. Physical Exam Vital Signs VITALS BP 105/58 P 60 TEMP 98.3 SP02 99%RA RESP 16 PHYSICAL Full cervical extension range of motion. Full TMJ range of motion. TMD 4 finger breaths Mallampati Score 1 Dentition: intact, + several implants Lungs: clear throughout to auscultation Cardiac: regular rate and rhythm, no murmurs noted Spine: normal Carotid arteries: negative bruit Extremities: no LE edema Lab Results Anesthesia Preop Results Results Anesthesia Widget: WBC 5.44 K/ul (4.8-10.8) 05/29/23 Hgb 13.3 g/dl (12.0-16.0) 05/29/23 Hct 38.6 % (37.0-47.0) 05/29/23 Plt 171 K/uL (130-400) 05/29/23 Na 141 mmol/L (136-145) 05/29/23 K 4.2 mmol/L (3.5-5.1) 05/29/23 Cl 106 mmol/L (98-107) 05/29/23 CO2 30 mmol/L (21-32) 05/29/23 BUN 27 mg/dl (6-23) H 05/29/23 Creat 0.82 mg/dl (0.6-1.2) 05/29/23 Glucose Level 93 mg/dl (70-99(Fasting)) 05/29/23 PT 10.6 Seconds (9.0-12.0) 05/29/23 PTT 26.1 Seconds (21.0-31.0) 05/29/23 INR 1.0 (0.9-1.1) 05/29/23 TSH 0.035 uIu/ml (0.300-4.500) L 05/29/23 Free T4 1.04 ng/dl (0.61-1.60) 05/29/23 Urine Color Yellow 05/29/23 Urine Appearance Clear (Clear) 05/29/23 Urine pH 6.0 (4.5-7.5) 05/29/23 Urine Specific [place] 1.028 (1.000-1.030) 05/29/23 Urine Protein Negative (Negative) 05/29/23 Urine Glucose (UA) Negative (Negative) 05/29/23 Urine Ketones Negative (Negative) 05/29/23 Urine Blood 1+ (Negative) H 05/29/23 Urine Nitrite Negative (Negative) 05/29/23 Urine Bilirubin Negative (Negative) 05/29/23 Urine Urobilinogen Negative (Negative) 05/29/23 Urine Leukocyte Esterase Negative (Negative) 05/29/23 Urine WBC (Auto) 1-5 /hpf (0-5) 05/29/23 Urine RBC (Auto) 5-10 /hpf (0-4) H 05/29/23 Urine Hyaline Casts (Auto) 1-5 /lpf (0-5) 05/29/23 Urine Epithelial Cells (Auto) 10-20 /lpf (0-5) H 05/29/23 Urine Bacteria (Auto) Negative (Negative) 05/29/23 Blood Type A Negative 05/29/23 Antibody Screen NEGATIVE 05/29/23 Testing Electrocardiogram Date: 05/29/23 SB at 55bpm. Otherwise normal ECG. Chest X-Ray Date: 05/29/23 FINDINGS: No lines and tubes are seen. Calcified aortic knob is seen. The lungs are clear. No evidence of pleural effusion or pneumothorax. IMPRESSION: No acute chest disease. Cervical Spine C-spine MRI (09/10/22): Multilevel degenerative changes, including moderate neural foraminal narrowing at C5-C6 on the left. No significant spinal canal stenosis. C-spine x-ray (07/25/22): There is no acute osseous abnormality.
[~2023-06-16 06:11] MED LIST changes: -ACETAMINOPHEN 500 MG TAB PO SCH; -CeleBREX 200 MG CAP PO SCH; +General Order Problem(s) SCH; +LR 60ML/HR IV SCH; -MIDAZOLAM HCL 1 MG/ML 2ML VIAL ONE; -ceFAZolin 1000MG 1,000 MG/7.5 ML SYR IV SCH; -fentaNYL citrate 100 MCG/2 ML VIAL ONE
[2023-06-16] MEDS ORDERED: BUPIVACAINE/EPINEPHRINE 0.25% 1:200,000 30 ML VIAL ONE (07:04)
[2023-06-16] MEDS ORDERED: ceFAZolin 330 MG/ML 1 GM VIAL ONE (07:05)
[2023-06-16] MEDS ORDERED: MIDAZOLAM HCL 1 MG/ML 2ML VIAL ONE (07:10)
[2023-06-16] MEDS ORDERED: fentaNYL citrate PF 100 MCG/2 ML VIAL ONE (07:10)
[2023-06-16] MEDS ORDERED: KETAMINE 50 MG/5 ML SYRINGE ONE (07:10)
[2023-06-16] MEDS ORDERED: HYDROmorphone INJ 1 MG/ML SYRINGE IV PRN (07:18)
[2023-06-16] MEDS ORDERED: ATROPINE SULFATE 0.1 MG/ML 10ML SYR IV PRN (07:18)
[2023-06-16] MEDS ORDERED: ONDANSETRON INJ 2 MG/ML 2 ML VIAL IV PRN ×2 (07:18→10:47)
[2023-06-16] MEDS ORDERED: fentaNYL citrate PF 100 MCG/2 ML VIAL IV PRN (07:18)
[2023-06-16] MEDS ORDERED: PROMETHAZINE HCL 6.25 MG in SODIUM CHLORIDE 0.9% 50 ML IV PRN (07:18)
[2023-06-16] MEDS ORDERED: ePHEDrine sulfate 50 MG/ML AMP IV PRN (07:18)
--- NOTE | 2023-06-16 07:39 | History & Physical Bridge Note ---
Date of Service June 16, 2023 History & Physical Bridge Note I have examined the patient, reviewed the History & Physical and in the interval since the performance of the History & Physical I have noted the following changes of clinical significance: no changes noted
--- NOTE | 2023-06-16 07:41 | History & Physical Report ---
Date of Service June 16, 2023 Assessment & Plan (1) Neurogenic claudication due to lumbar spinal stenosis: Plan L3-L4 decompression and fusion, L4-L5 hardware removal History of Present Illness Chief Complaint: Back and leg pain Primary Care Provider: Francisca Haro DO This is a 57-year-old female presents with worsening back and leg pain after failing course of nonoperative care she is here for surgical intervention. Allergies Allergy/AdvReac Type Severity Reaction Status Date / Time celecoxib [From Celebrex] AdvReac Intermediate itching Verified 06/04/23 08:06 codeine AdvReac Intermediate Gastrointestinal Verified 06/04/23 08:06 Upset hydromorphone [From Dilaudid] AdvReac Intermediate Gastrointestinal Verified 06/04/23 08:06 Upset oxycodone [From Percocet] AdvReac Intermediate Vomiting Verified 06/04/23 08:06 Home Medications Medication Instructions Recorded Confirmed Type calcium carbonate 600 mg-vitamin 1 cap PO QAM 10/01/20 06/16/23 History D3 5 mcg (200 unit) capsule modafinil 100 mg tablet 100 mg PO DAILY PRN Other 10/01/20 06/16/23 History prednisone 1 mg tablet 1 mg PO QAM 10/25/20 06/16/23 History acetaminophen 325 mg tablet 325 mg PO QID PRN Pain 01/29/21 06/16/23 History (Tylenol) cholecalciferol (vitamin D3) 25 4,000 unit PO QAM 01/30/22 06/16/23 History mcg (1,000 unit) capsule flurbiprofen 100 mg tablet 100 mg PO QAM 01/30/22 06/16/23 History levothyroxine 75 mcg tablet 75 mcg PO QAM #90 tabs 04/20/23 06/16/23 Rx diphenhydramine 25 1 tab PO HS PRN Sleep 05/25/23 06/16/23 History mg-acetaminophen 500 mg tablet (Tylenol PM Extra Strength) tofacitinib 11 mg tablet,extended 11 mg PO QAM 05/25/23 06/16/23 History release 24 hr (Xeljanz XR) Past Med/Surg History Medical History History of Graves' disease Hyperlipidemia Hypothyroidism Rheumatoid arthritis Surgical History H/O colonoscopy H/O laparoscopy H/O thyroidectomy History of arthroscopy History of bilateral salpingo-oophorectomy History of dilatation and curettage History of surgery on left wrist S/P carpal tunnel release S/P hysterectomy S/P lumbar fusion S/P tonsillectomy [place] teeth extracted Family History Unknown Arthritis Mother Hypertension FH: deafness or hearing loss Father Gout Coronary heart disease Grandfather Coronary heart disease Grandmother Rheumatoid arthritis Son FHx: allergies Asthma Social History Smoking Status: Never smoker Second Hand Exposure: No; Do You Dip or Chew Tobacco: No; Tobacco Cessation Education Requested by Patient: No Hx Alcohol Use: Yes Alcohol type: hard liquor Hx Substance Use: No Preferred Language: Irish Communication Ability: Effective [employer] Marketing Executive Required: No Beliefs That Will Affect Care: None marital status: Current Living Situation: Spouse Other Information That Helps Us Care for You: No Feels Safe at Home: Yes Safety Concerns: Feels Safe At This Time Assistive Devices: Glasses Physical Exam Physical Exam: Patient is alert and oriented Heart rate and rhythm Lungs clear Results & Data Results & Data Vital Signs (Past 12 Hours) Vital Signs Temp Pulse Resp BP Pulse Ox O2 Del Method 06/16/23 06:31 36.4 C L 57 L 18 155/78 H 99 Room Air
[2023-06-16] MEDS ORDERED: ceFAZolin 2,000 MG/15 ML IV PUSH IV ONE (07:47)
[2023-06-16] MEDS ORDERED: LIDOCAINE 2% 2 ML VIAL/AMP(20MG/ML) INFIL ONE (08:27)
[2023-06-16] MEDS ORDERED: DEXAMETHASONE SOD INJ 4 MG/ML VIAL ONE (08:27)
[2023-06-16] MEDS ORDERED: HYDROmorphone INJ 2 MG/ML SYR/VIAL ONE (08:27)
[2023-06-16] MEDS ORDERED: ROCURONIUM BROMIDE 10 MG/ML 5 ML VIAL IV ONE (08:27)
[2023-06-16] MEDS ORDERED: ONDANSETRON INJ 2 MG/ML 2 ML VIAL ONE (08:27)
[2023-06-16] MEDS ORDERED: PROPOFOL IV EMULSION 10 MG/ML 20 ML VIAL IV ONE (08:27)
[2023-06-16] MEDS ORDERED: ePHEDrine sulfate 50 MG/5 ML SYR ONE (08:36)
[2023-06-16] MEDS ORDERED: METOCLOPRAMIDE HCL INJ 5 MG/ML 2 ML VIAL ONE (08:52)
[2023-06-16] MEDS ORDERED: SUGAMMADEX SODIUM 200 MG/2 ML VIAL IV ONE (08:53)
[2023-06-16] MEDS ORDERED: FLOSEAL HEMOSTATIC MATRIX 10ML TOP ONE (09:17)
--- NOTE | 2023-06-16 09:28 | Operative Report ---
Post Operative Report Pre & Post Diagnosis Operation Date: 06/16/23 07:45 Pre-Op Diagnosis: Lumbar spinal stenosis with neurogenic claudication Post-Op Diagnosis: Same I identified the patient and participated in the time-out.: Yes Procedure Operation Date: 06/16/23 07:45 Actual Procedures #1 removal of posterior instrumentation L4-5. #2 exploration of fusion L4-5. #3 lumbar decompression bilaterally facetectomies and foraminotomies L2-L3 L3- L4. #4 posterior spinal fusion L3-L4. #5 placement of posterior instrumentation L3-L5. #6 interbody fusion L3-L4. #7 placement of Spira 11 x 26 mm cage at L3-L4. #8 placement locally harvested morselized autograft in the posterior gutters. #9 placement of I factor and interbody space combined with V toss in the posterior lateral gutters. Surgeon Jay Packer, [employer] Chair Karen Kuhn Estimated Blood Loss 50 Findings Consistent with Post-Op Diagnosis Specimens None Indications This is a 57-year-old female known to me the presents with above-mentioned diagnosis after failing course of nonoperative care is here for surgical invention. Description of Procedure Patient was met with identified informed consent obtained. Patient was then taken to the operative suite underwent patient placed in a prone position the Jex table top of some frame. All bony promises well-padded eyes inspected to ensure no external pressure placed upon the bed this point lumbar spine was prepped and draped in a sterile fashion. Sharp dissection with assistance of Bovie cautery to form down to and exposing the lamina transverse processes of L3-L4 and instrumentation L4-L5 bilaterally. Then proceeded move the hardware bilaterally explore the fusion mass noted to be in tact. Then performed a complete laminectomy of L3 partial anatomy of L2 including bilateral medial facetectomies and foraminotomies addressing severe spinal stenosis. Pedicle screws were then placed in L3-L4-L5 bilaterally with assistance of fluoroscopy and the properly sized richard placed. By way of a trans foraminal approach on the right complete discectomy of L3-L4 was performed endplates curetted to subcortical bleeding bone and 11 x 26 mm Spira cage with I factor tapped in position. The rods were then locked in final position bilaterally. The transve rse processes of all 3 L4 burred to subcortically and bone. I factor amount of the test and locally harvested morselized was then placed in the posterior gutters. 15 round KAREN drain inserted. The incision was then closed with 1 Vicryl to fascia 2-0 Vicryl subcutaneously and 4 Monocryl for final skin closure. Steri-Strips sterile dressing placed. Patient waken taken to PACU stable condition. Please note spinal cord monitoring visualized at the procedure no changes noted. Lastly Karen Kuhn was present at the entire surgery and while the patient positioning complex portion of the surgery and final skin closure. I attest to the content of the Intraoperative Record and any orders documented therein. Any exceptions are noted below.
[2023-06-16] MEDS ORDERED: LARYING-O-JET KIT (LTA) ONE (10:40)
--- NOTE | 2023-06-16 10:40 | Fluoroscopy Report ---
FL lumbar spine 2-3V CLINICAL HISTORY: L3-L4 DECOMPRESSION AND FUSION L4-L5 HW REMOVAL COMPARISON STUDY: None. FLUOROSCOPY TIME: 12 seconds FLUOROSCOPY IMAGES: 2 Ka,r: 8.5 mGy FINDINGS: Posterior decompression fusion from L3 through L5 with pedicle screws and rods. Hardware ap pears intact. Disc spacers are in place. IMPRESSION: Fluoroscopic assistance as above. ACT 112: Negative or not required by law. Electronically signed by: Valdemar Boyle M.D. 06/16/2023 10:39 AM
[2023-06-16] MEDS ORDERED: HYDROmorphone INJ 0.5 MG/0.5 ML SYR IV PRN (10:47)
[2023-06-16] MEDS ORDERED: ACETAMINOPHEN 1,000 MG/100 ML VIAL IV PRN (10:47)
[2023-06-16] MEDS ORDERED: ALUMINUM/MAGNESIUM SUSP 30 ML UDC PO PRN (10:47)
[2023-06-16] MEDS ORDERED: DO NOT ADMINISTER PNEUMOCOCCAL VACCINE PRN (10:47)
[2023-06-16] MEDS ORDERED: PROMETHAZINE HCL 12.5 MG in SODIUM CHLORIDE 0.9% 50 ML IV PRN (10:47)
[2023-06-16] MEDS ORDERED: SOD PHOSPHATE/SOD BIPHOSPHATE ENEMA 132 ML BTL PR PRN (10:47)
[2023-06-16] MEDS ORDERED: NALOXONE HCL 0.4 MG/1 ML VIAL/CARP IV PRN (10:47)
[2023-06-16] MEDS ORDERED: hydrOXYzine HCl 25 MG TAB PO PRN (10:47)
[2023-06-16] MEDS ORDERED: METOCLOPRAMIDE HCL INJ 5 MG/ML 2 ML VIAL IV PRN (10:47)
[2023-06-16] MEDS ORDERED: LORazepam 0.5 MG TAB PO PRN (10:47)
[2023-06-16] MEDS ORDERED: LORazepam 2 MG/1 ML VIAL IV PRN (10:47)
[2023-06-16] MEDS ORDERED: MAGNESIUM HYDROXIDE SUSP 30 ML UDC PO PRN (10:47)
[2023-06-16] MEDS ORDERED: oxyCODONE HCL IR 5 MG TAB (IMMEDIATE RELEASE) PO PRN (10:47)
[2023-06-16] MEDS ORDERED: diphenhydrAMINE Capsule 25 MG CAP PO PRN (10:47)
[2023-06-16] MEDS ORDERED: ONDANSETRON 4 MG OD TAB PO PRN (10:47)
[2023-06-16] MEDS ORDERED: FAMOTIDINE 20 MG TAB PO PRN (10:47)
[2023-06-16] MEDS ORDERED: bisacodyL 10 MG SUPP PR PRN (10:47)
[2023-06-16] MEDS ORDERED: DO NOT ADMINISTER FLU VACCINE PRN (10:47)
[2023-06-16] MEDS ORDERED: modafiniL 100 MG TAB PO PRN (10:47)
[2023-06-16] MEDS: LACTATED RINGER'S 1,000 ML IV SCH ×2 (11:10→20:59)
[2023-06-16] MEDS: ACETAMINOPHEN 500 MG TAB PO PRN ×2 (12:50→20:58)
--- NOTE | 2023-06-16 14:12 | Anesthesiology Progress Note ---
Date of Service June 16, 2023 Anesthesia Post Procedure Vital Signs Vital Signs: Temp Pulse Pulse Resp BP Pulse Ox O2 Del Method 06/16/23 13:45 65 18 115/70 97 Room Air 06/16/23 12:45 72 18 128/70 97 Room Air 06/16/23 11:42 74 18 111/67 96 Room Air 06/16/23 11:13 66 18 128/72 92 Room Air 06/16/23 10:45 36.4 C L 74 18 148/74 H 96 Room Air 06/16/23 10:30 80 13 121/77 100 Room Air 06/16/23 10:20 36.4 C L 72 19 133/62 96 Room Air 06/16/23 10:10 78 12 124/71 98 Room Air 06/16/23 10:00 72 14 124/62 100 Oxymask 06/16/23 09:50 36.3 C L 85 17 133/77 100 Oxymask 06/16/23 06:31 36.4 C L 57 L 18 155/78 H 99 Room Air O2 Flow Rate 06/16/23 13:45 06/16/23 12:45 06/16/23 11:42 06/16/23 11:13 06/16/23 10:45 06/16/23 10:30 06/16/23 10:20 06/16/23 10:10 06/16/23 10:00 5 06/16/23 09:50 5 06/16/23 06:31 Pain Intensity Back: Pain Intensity: 4 Transfer of Care Handoff Completed per policy Notes Mental Status: alert / awake / arousable and participated in evaluation Patient Amnestic to Procedure: Yes Nausea / Vomiting: adequately controlled Pain: adequately controlled Airway Patency, RR, SpO2: stable & adequate BP & HR: stable & adequate Hydration State: stable & adequate Anesthetic Complications: no major complications apparent and Pt Satisfied with anesthetic care
[2023-06-16] MEDS: ceFAZolin 2000MG 2,000 MG/15 ML SYR IV SCH ×2 (15:41→23:03)
[2023-06-16] MEDS: DOCUSATE SODIUM/SENNA 50/8.6MG TAB PO SCH (20:58)
[2023-06-17] MEDS: POLYETHYLENE (MIRALAX) 17 GM PACK PO SCH ×4 (06:06→22:29)
[2023-06-17] MEDS: ACETAMINOPHEN 500 MG TAB PO PRN ×3 (06:09→22:30)
[2023-06-17] MEDS: KETOROLAC TROMETHAMINE 15 MG/ML VIAL IV PRN ×2 (06:11→12:19)
[2023-06-17 07:18] LABS: Basophils # (auto) 0.01 K/uL (0.00-0.20); Basophils % (auto) 0.1 %; Eosinophils # (auto) 0.03 K/uL (0.00-0.50); Eosinophils % (auto) 0.4 %; Hematocrit (blood only) 31.6 % (37.0-47.0); Immature Granulocytes # (auto) 0.04 K/uL (0.01-0.20); Immature Granulocytes % (auto) 0.5 %; Lymphocytes # (auto) 1.12 K/uL (1.20-3.40); Lymphocytes % (auto) 13.2 %; Mean Corpuscular Hemoglobin 32.2 pg (25.0-34.0); Mean Corpuscular Hgb Conc 34.8 g/dL (32.0-36.0); Mean Corpuscular Volume 92.4 fL (80.0-100.0); Mean Platelet Volume 9.7 fL (9.4-12.4); Monocytes # (auto) 0.72 K/uL (0.11-0.59); Monocytes % (auto) 8.5 %; Neutrophils # (auto) 6.56 K/uL (1.40-6.50); Neutrophils % (auto) 77.3 %; Platelet Count 151 K/uL (130-400); RDW Coefficient of Variation 12.1 % (11.5-14.5); Red Blood Count 3.42 M/uL (4.20-5.40); White Blood Count 8.48 K/ul (4.8-10.8)
[2023-06-17 07:37] LABS: BUN Creatinine Ratio 16.7 (10-20); Calcium 8.8 mg/dl (8.6-10.3); Creatinine Clr Calc Pharmacy 70.1 ml/min; Est GFR (African American) 88.8 ml/min; Est GFR (Non-African American) 76.6 ml/min; Potassium 3.7 mmol/L (3.5-5.1)
[2023-06-17] MEDS: XELJANZ 11 MG PO SCH (08:02)
[2023-06-17] MEDS: predniSONE 1 MG TAB PO SCH (08:02)
[2023-06-17] MEDS: CALCIUM 600MG + VIT D 400 IU TAB PO SCH (08:02)
[2023-06-17] MEDS: LEVOTHYROXINE SODIUM 75 MCG TABLET PO SCH (08:02)
[2023-06-17] MEDS: dexAMETHasone 6 MG in SYRINGE 0 ML IV SCH (08:02)
--- NOTE | 2023-06-17 08:03 | Hospitalist Consultation ---
Date of Consultation June 17, 2023 Assessment & Plan (1) Lumbar radiculopathy: POD# 1 s/p #1 removal of posterior instrumentation L4-5. #2 exploration of fusion L4-5. #3 lumbar decompression bilaterally facetectomies and foraminotomies L2-L3 L3-L4. #4 posterior spinal fusion L3-L4. #5 placement of posterior instrumentation L3-L5. #6 interbody fusion L3-L4. #7 placement of Spira 11 x 26 mm cage at L3-L4. #8 placement locally harvested morselized autograft in the posterior gutters. #9 placement of I factor and interbody space combined with V toss in the posterior lateral gutters with Dr Packer on 06/16 EBL 50cc Pain control/bowel regimen/PT/OT WBC wnl, afebrile. Hgb 13.3--> 11, suspect acute blood loss anemia from surgery (EBL 50cc + 350cc KAREN output recorded) as well as dilutional aspect from IVF. No CP/SOB/dizziness/lightheadedness reported. Patient doing well, anticipating discharge tomorrow as long as KAREN output decreased/no further issues (2) Rheumatoid arthritis: Chronic/stable Follows w/ Rheumatology, on Prednisone 1mg daily, Xaljanz BP stable, can monitor for any lows/symptoms needed for stress dose steroids, however is on dexamethasone IV by primary and should cover. Pepcid available prn for GI proph/reflux (none reported) (3) Hypothyroidism: hx graves/malignancy, s/p surgery on Synthroid 75mcg daily, continued (4) Hyperlipidemia: not on medications Plan Thank you for allowing hospitalist service to participate in the care of Ms Ochoa. Hospitalist service will sign off. Please contact with any questions/concerns. Supervising Physician Co-Signing Physician Notes The patient was seen by me. The chart was reviewed. Case discussed with CLAUDIO Abel. Agree with assessment and plan History of Present Illness Reason for Consultation: medical management Requesting Physician: Dr Packer Attending Physician: Jay Packer DO History of Present Illness 57yo female with PMHx significant for Graves disease, Rheumatoid Arthritis (on Xeljanz), HLD presented for L3-L4 decompression and fusion with Dr Packer on 06/16. Patient evaluated in room 318, doing well. Sitting up in chair. Pain controlled, working with therapy. States she believes discharge tomorrow but not yet seen by Dr Packer this morning. KAREN drain emptied several times, discussed that may be what keeps her until tomorrow. No fever/chills, chest pain, shortness of breath, abdominal pain. +passing flatus. Anticipating discharge tomorrow. Questions/concerns addressed at this time. Allergies Allergy/AdvReac Type Severity Reaction Status Date / Time celecoxib [From Celebrex] AdvReac Intermediate itching Verified 06/04/23 08:06 codeine AdvReac Intermediate Gastrointestinal Verified 06/04/23 08:06 Upset hydromorphone [From Dilaudid] AdvReac Intermediate Gastrointestinal Verified 06/04/23 08:06 Upset oxycodone [From Percocet] AdvReac Intermediate Vomiting Verified 06/04/23 08:06 Home Medications Medication Instructions Recorded Confirmed Type calcium carbonate 600 mg-vitamin 1 cap PO QAM 10/01/20 06/16/23 History D3 5 mcg (200 unit) capsule modafinil 100 mg tablet 100 mg PO DAILY PRN Other 10/01/20 06/16/23 History prednisone 1 mg tablet 1 mg PO QAM 10/25/20 06/16/23 History acetaminophen 325 mg tablet 325 mg PO QID PRN Pain 01/29/21 06/16/23 History (Tylenol) cholecalciferol (vitamin D3) 25 4,000 unit PO QAM 01/30/22 06/16/23 History mcg (1,000 unit) capsule flurbiprofen 100 mg tablet 100 mg PO QAM 01/30/22 06/16/23 History levothyroxine 75 mcg tablet 75 mcg PO QAM #90 tabs 04/20/23 06/16/23 Rx diphenhydramine 25 1 tab PO HS PRN Sleep 05/25/23 06/16/23 History mg-acetaminophen 500 mg tablet (Tylenol PM Extra Strength) tofacitinib 11 mg tablet,extended 11 mg PO QAM 05/25/23 06/16/23 History release 24 hr (Xeljanz XR) Patient History Medical History History of Graves' disease Hyperlipidemia Per records, patient denies Hypothyroidism s/p total thyroidectomy 1997 for graves dz Rheumatoid arthritis Follows with Rheum Taking Xeljanz and daily prednisone 1 mg daily Surgical History H/O colonoscopy H/O laparoscopy H/O thyroidectomy due to Graves disease History of arthroscopy right knee History of bilateral salpingo-oophorectomy History of dilatation and curettage History of surgery on left wrist + hardware S/P carpal tunnel release R/L S/P hysterectomy S/P lumbar fusion L4-5 decompression/fusion (11/19/20): Grade view 2, MAC 3.0, ETT 7.0, atraumatic at [facility] S/P tonsillectomy [place] teeth extracted Family History Unknown Arthritis Mother Hypertension FH: deafness or hearing loss Father Gout Coronary heart disease Grandfather Coronary heart disease Grandmother Rheumatoid arthritis Son FHx: allergies Asthma Social History Smoking Status: Never smoker Second Hand Exposure: No; Do You Dip or Chew Tobacco: No; Tobacco Cessation Education Requested by Patient: No Hx Alcohol Use: Yes Alcohol type: hard liquor Hx Substance Use: No Preferred Language: Danish Communication Ability: Effective Lace Sewer Required: No Beliefs That Will Affect Care: None marital status: Current Living Situation: Spouse Other Information That Helps Us Care for You: No Feels Safe at Home: Yes Safety Concerns: Feels Safe At This Time Assistive Devices: None Review of Systems Review of Systems: All systems reviewed & are unremarkable except as noted in HPI & below Physical Exam Physical Exam: General: WD/WN female sitting up in chair, NAD, talking with egg caser HEENT: head normocephalic, atraumatic, mmm Resp: CTA, no w/c/r, on room air CV: RRR, no significant m/r/g, no pitting edema/calf tenderness GI: +BS, soft/NT : no banegas MSK/Neuro: dressing to spine c/d/i, KAREN with bloody drainage present, NVI, pulses palpable, strength equal b/l LE Psych: AOx3, cooperative with exam Results & Data Results & Data Vital Signs (Past 12 Hours) Vital Signs Temp Pulse Resp BP BP Pulse Ox O2 Del Method 06/17/23 07:37 36.7 C 68 16 104/64 98 Room Air 06/17/23 03:27 36.7 C 67 17 114/71 97 Room Air 06/16/23 23:05 37.2 C 75 17 111/64 96 Room Air Laboratory Results 06/17/23 06/17/23 Range/Units 06:41 06:41 WBC 8.48 (4.8-10.8) K/ul RBC 3.42 L (4.20-5.40) M/uL Hgb 11.0 L (12.0-16.0) g/dl Hct 31.6 L (37.0-47.0) % MCV 92.4 (80.0-100.0) fL MCH 32.2 (25.0-34.0) pg MCHC 34.8 (32.0-36.0) g/dL RDW Std Deviation 41.0 (36.4-46.3) fL RDW Coeff of Ashish 12.1 (11.5-14.5) % Plt Count 151 (130-400) K/uL MPV 9.7 (9.4-12.4) fL Immature Gran % (Auto) 0.5 % Neut % (Auto) 77.3 % Lymph % (Auto) 13.2 % Hamilton % (Auto) 8.5 % Eos % (Auto) 0.4 % Baso % (Auto) 0.1 % Neut # (Auto) 6.56 H (1.40-6.50) K/uL Lymph # (Auto) 1.12 L (1.20-3.40) K/uL Hamilton # (Auto) 0.72 H (0.11-0.59) K/uL Eos # (Auto) 0.03 (0.00-0.50) K/uL Baso # (Auto) 0.01 (0.00-0.20) K/uL Immature Gran # (Auto) 0.04 (0.01-0.20) K/uL Sodium 141 (136-145) mmol/L Potassium 3.7 (3.5-5.1) mmol/L Chloride 105 (98-107) mmol/L Carbon Dioxide 31 (21-32) mmol/L Anion Gap 5 (3-11) BUN 14 (6-23) mg/dl Creatinine 0.84 (0.6-1.2) mg/dl Est Cr Clr Drug Dosing 70.1 ml/min Est GFR ( Amer) 88.8 ml/min Est GFR (Non-Af Amer) 76.6 ml/min BUN/Creatinine Ratio 16.7 (10-20) Glucose 106 H (70-99(Fasting)) mg/dl Calcium 8.8 (8.6-10.3) mg/dl Diagnostic Findings Lumbar Spine X-Ray 06/16/23 07:45 FL lumbar spine 2-3V CLINICAL HISTORY: L3-L4 DECOMPRESSION AND FUSION L4-L5 HW REMOVAL COMPARISON STUDY: None. FLUOROSCOPY TIME: 12 seconds FLUOROSCOPY IMAGES: 2 Ka,r: 8.5 mGy FINDINGS: Posterior decompression fusion from L3 through L5 with pedicle screws and rods. Hardware appears intact. Disc spacers are in place. IMPRESSION: Fluoroscopic assistance as above. ACT 112: Negative or not required by law. Electronically signed by: Valdemar Boyle M.D. 06/16/2023 10:39 AM PG Care Time/CCT Total # of Minutes Spent Total Time Spent with Patient: Total time spent is greater than 50% in coordination of care (as documented) at patient's floor/unit and/or counseling patient: Coding Level of Care Code 13720 IN/OBS CONSULT LVL 3,45M Diagnoses Lumbar radiculopathy M54.16 Rheumatoid arthritis M06.9 Hypothyroidism E03.9 Hyperlipidemia E78.5
[2023-06-17] MEDS ORDERED: NON-FORMULARY MEDICATION (Flurbiprofen 100 mg tablet) PO SCH (09:00)
--- NOTE | 2023-06-17 12:53 | Orthopedic Progress Note ---
Date of Service June 17, 2023 Assessment & Plan (1) Lumbar radiculopathy: Plan: At this time initiate physical therapy monitor KAREN output likely discharge home in the next few days. Admission and Anticipated Discharge Date Admission Date: June 16, 2023 Subjective Back pain controlled leg pain markedly improved Physical Exam Physical Exam: Patient is in a chair at the bedside. She comfortable. Is concerned to testing. Results & Data Vital Signs (Past 12 Hours) Vital Signs Temp Pulse Resp BP BP Pulse Ox O2 Del Method 06/17/23 07:37 36.7 C 68 16 104/64 98 Room Air 06/17/23 03:27 36.7 C 67 17 114/71 97 Room Air
[2023-06-17] MEDS: DOCUSATE SODIUM/SENNA 50/8.6MG TAB PO SCH (20:47)
[2023-06-18] MEDS: ACETAMINOPHEN 500 MG TAB PO PRN (06:08)
[2023-06-18] MEDS: POLYETHYLENE (MIRALAX) 17 GM PACK PO SCH (06:09)
[2023-06-18] MEDS: dexAMETHasone 6 MG in SYRINGE 0 ML IV SCH ×2 (08:13→09:03)
[2023-06-18] MEDS: CALCIUM 600MG + VIT D 400 IU TAB PO SCH (08:14)
[2023-06-18] MEDS: LEVOTHYROXINE SODIUM 75 MCG TABLET PO SCH (08:14)
[2023-06-18] MEDS: XELJANZ 11 MG PO SCH (08:14)
[2023-06-18] MEDS: predniSONE 1 MG TAB PO SCH (08:14)
--- NOTE | 2023-06-18 08:38 | Hospitalist Progress Note ---
Date of Service June 18, 2023 Assessment & Plan (1) Lumbar radiculopathy: Plan: POD# 1 s/p #1 removal of posterior instrumentation L4-5. #2 exploration of fusion L4-5. #3 lumbar decompression bilaterally facetectomies and foraminotomies L2-L3 L3-L4. #4 posterior spinal fusion L3-L4. #5 placement of posterior instrumentation L3-L5. #6 interbody fusion L3-L4. #7 placement of Spira 11 x 26 mm cage at L3-L4. #8 placement locally harvested morselized autograft in the posterior gutters. #9 placement of I factor and interbody space combined with V toss in the posterior lateral gutters with Dr Pcaker on 06/16 EBL 50cc Pain control/bowel regimen/PT/OT WBC wnl, afebrile. Hgb 13.3--> 11, suspect acute blood loss anemia from surgery (EBL 50cc + 350cc KAREN output recorded) as well as dilutional aspect from IVF. No CP/SOB/dizziness/lightheadedness reported. Patient doing well, anticipating discharge tomorrow as long as KAREN output decreased/no further issues (2) Rheumatoid arthritis: Plan: Chronic/stable Follows w/ Rheumatology, on Prednisone 1mg daily, Xaljanz BP stable, can monitor for any lows/symptoms needed for stress dose steroids, however is on dexamethasone IV by primary and should cover. Pepcid available prn for GI proph/reflux (none reported) (3) Hypothyroidism: Plan: hx graves/malignancy, s/p surgery on Synthroid 75mcg daily, continued (4) Hyperlipidemia: Plan: not on medications Plan Thank you for allowing hospitalist service to participate in the care of Ms Ochoa. Hospitalist service will sign off. Please contact with any questions/concerns. Admission and Anticipated Discharge Date Admission Date: June 16, 2023 Results & Data Results & Data Vital Signs (Past 12 Hours) Vital Signs Temp Pulse Resp BP Pulse Ox O2 Del Method 06/18/23 07:40 36.7 C 63 16 111/71 97 Room Air 06/17/23 22:32 36.6 C 60 16 115/76 96 Room Air PG Care Time/CCT Total # of Minutes Spent Total Time Spent with Patient: Total time spent is greater than 50% in coordination of care (as documented) at patient's floor/unit and/or counseling patient: Coding Diagnoses Lumbar radiculopathy M54.16 Rheumatoid arthritis M06.9 Hypothyroidism E03.9 Hyperlipidemia E78.5
--- NOTE | 2023-06-18 08:38 | Discharge Summary ---
Date of Service June 18, 2023 Admission HPI Per Admitting Provider This is a 57-year-old female presents with worsening back and leg pain after failing course of nonoperative care she is here for surgical intervention. Principal Diagnosis Lumbar spinal stenosis with neurogenic claudication Discharge Data Allergies Allergy/AdvReac Type Severity Reaction Status Date / Time celecoxib [From Celebrex] AdvReac Intermediate itching Verified 06/04/23 08:06 codeine AdvReac Intermediate Gastrointestinal Verified 06/04/23 08:06 Upset hydromorphone [From Dilaudid] AdvReac Intermediate Gastrointestinal Verified 06/04/23 08:06 Upset oxycodone [From Percocet] AdvReac Intermediate Vomiting Verified 06/04/23 08:06 Consultations 06/16/23 10:47 Consult Hospitalist Routine Procedures Performed Operation Date: 06/16/23 07:45 Actual Procedures p L3-L4 Decompression and Fusion, Spinal Cord Monitoring(Not Applicable) - Jay Packer DO s L4-L5 Hardware Removal, (Not Applicable) - Jay Packer DO Ordered Studies 06/16/23 07:45 FL lumbar spine 2-3V Routine Hospital Course (1) Lumbar radiculopathy: Patient underwent lumbar decompression and fusion tolerated this well was taken orthopedic floor postoperative. Postop day 1 she was up and ambulating. Postop day #2. KAREN drain decreasing improving. Excellent strength to testing. Discharged home. Discharge orders and instructions from the chart for further review. Total Time Total Time Spent Total Time Spent (In Minutes): 20 minutes Discharge Plan Discharge Items Patient Disposition: Home - Self-Care Reason For Visit: Spinal Stenosis, Lumbar Region without Neurogenic Discharge Diagnosis: Lumbar spinal stenosis with neurogenic claudication Activity: As commented below Non-emergency contact: Primary Care Provider Call non-emergency contact if: you have any medication questions Follow-up/Referrals: Francisca Haro DO [Primary Care Provider] - Diet: Regular Addtl Attending Provider Instructions: ACTIVITY RECOMMENDATIONS: SELF CARE INSTRUCTIONS AFTER THORACIC/LUMBAR FUSIONS 1. You may walk to your tolerance. It is good exercise for your legs and back. Expect some back and intermittent leg aches and pains. 2. You may perform "counter-top" level activities (make a sandwich, keri with a project, etc.). 3. No bending or lifting of more than 10 pounds or back twisting of any nature (roll like a log when turning in bed). 4. You may ride in a car for 20-30 minutes at a time. No driving until after your first visit with your doctor. 5. Frequent changes of position and restricting sitting to 30 minutes at a time will help limit the amount of back spasms and stiffness you may experience. 6. You may discontinue the use of ambulatory aids (cane, crutches, etc.) once your strength and confidence allow. 7. You may spring repairer helper hand the shower and let water strike your incision when you arrive home at least once daily. Do not take a tub bath, sit in a hot tub or go into a swimming pool until after your first recheck in the office. SPECIAL CARE INSTRUCTIONS: VERY IMPORTANT TO READ AND REVIEW A. Your surgical incision has been closed with a cosmetic suture under the skin that will dissolve in about 6 weeks. In 14 days, you can use a pair of clean scissors and cut the suture that is left outside of the skin at the ends of your incision. 1. The small skin tapes can be removed 7 days after surgery if they have not fallen off by that point. 2. You may keep the wound open to air as much as possible to promote healing after post-op day number 5 unless told otherwise by your doctor. 3. If you think the wound looks like it is becoming infected (redness or w orsening drainage) and/or you are experiencing fever, chill or worsening back pain and muscle spasms, contact the office so that we may evaluate you as soon as possible. B. Complications are uncommon, but please contact us if you have any signs or symptoms of: 1. wound infection (fever higher than 102.5 degrees F, redness, separation of wound, drainage, or increasing pain from the incision) 2. blood clots in legs (pain, swelling, redness and warmth in legs) 3. urinary tract infection (fever higher than 102.5 degrees F, burning upon urination or increased frequency of urination) 4. nerve problems (inability to walk on your toes or heels, numbness, loss of bowel or bladder control) 5. any other symptoms that concern you C. Please call the office at if you have any concerns or questions about your operation or recovery. D. No smoking! Smoking drastically decreases the chance of a solid fusion. E. Do not take any anti-inflammatory medications (Indocin, Advil, Motrin, Aspirin, Naprosyn, etc.) as these may inhibit the chance of a solid fusion. Tylenol is okay to take for pain. MANAGING PAIN AFTER SPINAL SURGERY 1. Narcotic medication is intended for short-term use and will be provided for surgical pain. Surgical pain usually lasts for a period of 4-6 weeks. Narcotic medication includes Percocet, Vicodin, Darvocet, Tylenol #3 or Lortab. 2. Longer-term pain is more appropriately treated with non-narcotic medication such as Tylenol ES. 3. Muscle spasm is not appropriately treated with narcotics. Muscle relaxers s uch as Soma, Flexeril or Skelaxin can be used along with Tylenol ES. 4. Remember that we all live with some "aches and pains". This is not unusual or uncommon after an injury or as we get older. a. Back pain is expected and may include muscle spasms for 4 to 6 weeks after surgery. The pain should gradually improve. If the pain worsens for no apparent reason, please contact the office. b. Intermittent leg pain may also be experienced and should not be concerned about unless it worsens for no apparent reason. If so, please contact the office. 5. We will provide appropriate medication within the normal guidelines of their prescribed use. We will also be very cautious and aware of potential abuse and extended duration of patients' medication needs. a. Pain medications are for your comfort and to assist with sleep and rest so that the tissue can heal. They are not provided in order to return to normal activity and should not be used through the day. To do so or worsening pain at night can result from ongoing tissue damage and development of tolerance to the prescribed medicine. 6. Please allow 2-3 days to process refills. Prescriptions will not be mailed but must be picked up at the office. FOLLOW UP VISIT: Keep your scheduled follow-up appointment. Any questions, please call the office at . Pending Studies at Discharge: No Stand-Alone Forms: [employer], Smoking Cessation Medications and DC Order Prescriptions: Continued levothyroxine 75 mcg tablet 75 mcg PO QAM Qty: 90 3RF acetaminophen [Tylenol] 325 mg tablet 325 mg PO QID PRN (Reason: Pain) flurbiprofen 100 mg tablet 100 mg PO QAM modafinil 100 mg tablet 100 mg PO DAILY PRN (Reason: Other) calcium carbonate-vitamin D3 600 mg calcium- 200 unit capsule 1 cap PO QAM prednisone 1 mg tablet 1 mg PO QAM cholecalciferol (vitamin D3) 25 mcg (1,000 unit) capsule 4,000 unit PO QAM Xeljanz XR 11 mg tablet extended release 24 hr 11 mg PO QAM diphenhydramine-acetaminophen [Tylenol PM Extra Strength] 25-500 mg Tablet 1 tab PO HS PRN (Reason: Sleep) Discharge Orders: Discharge Order (Routine); Ordered 06/18/23 Ordered By: Jay Packer Admission Data Admit Date/Time: 06/16/23 09:32 Attending Provider: Jay Packer Admit Provider: Jay Packer Primary Care Provider: Francisca Haro Other Providers: Kip Miller ; Quintin Orellana
[2023-06-18] MEDS ORDERED: dexAMETHasone 4 MG TAB PO STA (09:10)
--- NOTE | 2023-06-18 09:16 | Communication Note ---
Date of Service: June 18, 2023 Stopped by to see patient, doing even better than yesterday. Pain well controlled. Dressed and ready for dc, seen by Dr Packer this morning. KAREN output decreased and removed this morning. Discussed her IV site went bad, RN asking Dr Packer about oral steroid prior to dc, but otherwise planning to discharge. Messaged Dr Packer to confirm PO ok prior to d/c. Please call with any questions/concerns.
--- NOTE | 2023-06-21 12:18 | Coding Query ---
ANEMIA To promote full compliance with coding requirements relating to patient care, physician participation is requested in all cases of bead forming machine operator uncertainty. Please assist us with the question(s) below: Coding Question(s): The record reflects the following clinical findings: Hgb 13.3 down to 11 suspect acute blood loss anemia from surgery If these findings are indicative of anemia, please specify the known or suspected type by placing an "X" within the parenthesis (x). If other, please document type. Examples are: ( ) Acute blood loss anemia ( x) Acute Postoperative blood loss anemia ( ) Acute postoperative anemia due to dilutional fluids ( ) Chronic blood loss anemia ( ) Anemia of chronic disease ( ) Aplastic anemia ( ) Anemia due to renal disease ( ) Anemia in neoplastic disease ( ) Iron deficient anemia ( ) Anemia, unspecified or other ( ) Other: (please specify) Thank you Samanta DRISCOLL
== END 2023-06-18 10:41 | disposition home or self-care (01) | DRG 454 ==
LOC: ASU 06:11 → 3E 09:32